=== PATIENT | female | born 1975 | race Caucasian/White ===

== ENCOUNTER 2016-12-14 11:00 | Day surgery (SDC) | payer BC ==
[~2016-12-14] VITALS: Ht 175.3 cm; Wt 78.5 kg
[2016-12-14 12:09] VITALS: O2SAT 99
[2016-12-14] MEDS ORDERED: KETOROLAC TROMETHAMINE 30 MG VIAL IVP ONE (13:50)
[2016-12-14] MEDS ORDERED: DOXYCYCLINE HYCLATE 100 MG VIAL IV ONE (13:50)
[2016-12-14] MEDS ORDERED: DEXAMETHASONE SOD PHOSPHATE 4 MG/ML VIAL IVP ONE (13:50)
[2016-12-14] MEDS ORDERED: NS 100 ML BAG IV ONE (13:50)
[2016-12-14] MEDS ORDERED: ONDANSETRON HCL 4 MG/2 ML VIAL IVP ONE (13:50)
[2016-12-14] MEDS ORDERED: SEVOFLURANE 15 MIN GAS INH ONE (13:50)
[2016-12-14] MEDS ORDERED: fentaNYL CITRATE/PF 100 MCG/2 ML AMP IVP ONE (13:50)
[2016-12-14] MEDS ORDERED: ROCURONIUM BROMIDE 10 MG/ML (ZEMURON) IV ONE (13:50)
[2016-12-14] MEDS ORDERED: MIDAZOLAM HCL 5 MG/5 ML VIAL IVP ONE (13:50)
[2016-12-14] MEDS ORDERED: HYDROmorphone 2 MG TAB PO PRN (14:30)
[2016-12-14] MEDS ORDERED: PROMETHAZINE HCL 25 MG/ML AMP IM PRN (14:30)
[2016-12-14] MEDS ORDERED: OXYCODONE/ACETAMINOPHEN 5-325 TABLET PO PRN (14:30)
[2016-12-14] MEDS ORDERED: ONDANSETRON HCL 4 MG/2 ML VIAL IVP PRN (14:30)
[2016-12-14] MEDS ORDERED: ONDANSETRON HCL 4 MG/2 ML VIAL ONE (16:06)
[2016-12-14] MEDS ORDERED: OXYCODONE/ACETAMINOPHEN 5-325 TABLET ONE (16:19)
[2016-12-14 16:22] VITALS: BP 101/69; PULSE 59; RESP 16
== END 2016-12-14 17:00 | disposition home or self-care (01) ==
LOC: SOR 11:00
PROVIDERS: ATTEND Obstetrics & Gynecology
DX: O02.1 Missed abortion (principal); Z80.3 Family history of malignant neoplasm of breast; Z80.0 Family history of malignant neoplasm of digestive organs; Z83.3 Family history of diabetes mellitus
CPT/HCPCS: 36415; 59820; 86886; 86900; 86901; 88305; J1100; J1885; J2250; J2405; J3010; J3490; J7120